=== PATIENT | male | born 1945 | race Caucasian/White ===

== ENCOUNTER 2020-02-06 15:58 | Emergency (ER) | payer MEDICARE ==
[~2020-02-06] VITALS: Ht 175.3 cm; Wt 108.9 kg
--- NOTE | 2020-02-06 16:40 | Diagnostic Imaging Report ---
Examination: CT BRAIN WO CONTRAST History:Slurring words the past 3 days Comparison studies:None Technique: Axial images were obtained from the skull base to the vertex. Coronal and sagittal images reconstructed from the axial data. Dose modulation, iterative reconstruction, and/or weight based adjustment of the mA/kV was utilized to reduce the radiation dose to as low as reasonably achievable. Intravenous contrast: None Findings: Scalp: No abnormalities. Bones: No fractures, blastic or lytic lesions. Brain sulci: Mild volume loss for age. Ventricles: No hydrocephalus. Extra-axial space: No abnormalities. Parenchyma: There are subtle patchy areas of hypoattenuation in the periventricular and subcortical white matter, nonspecific. No masses, hemorrhage, or acute cortical based vascular insults. There is a cortical-based encephalomalacia of the lingual gyrus of the left occipital lobe and superior left cerebellum. Sellar/suprasellar region: No abnormalities. Craniocervical junction: Patent foramen magnum. No Chiari one malformation. Incidental findings: Atherosclerotic calcification of the cavernous and supraclinoid internal carotid arteries. Impression: No acute intracranial abnormalities. Mild chronic microvascular ischemic change and volume loss. 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 Signed by: Dr. Nisa Pringle M.D. on 02/06/2020 4:36 PM
--- NOTE | 2020-02-06 16:45 | Diagnostic Imaging Report ---
TECHNIQUE: Frontal view of the chest. INDICATION: ^FALL R/O CVA COMPARISON: None. IMPRESSION: Limited by technique. Lines and hardware: Surgical clips overlying the left axilla. Heart and mediastinum: Tortuous aorta. Otherwise, unremarkable.. Lungs and pleura: Low lung volumes. Scattered atelectasis. No focal airspace consolidation. No pleural effusion. No pneumothorax. Soft tissues and bones: No acute abnormality. Signed by: Thaddeus Leigh MD on 02/06/2020 4:42 PM
[2020-02-06 16:58] LABS: BASOPHILS % 0.4 % (0.0-1.0); EOSINOPHILS % 0.5 % (0.0-6.0); HEMATOCRIT 37.1 % (38.2-49.6); HEMOGLOBIN 12.6 g/dL (14.0-18.0); LYMPHOCYTES # (AUTO) 0.8 (1.0-3.2); LYMPHOCYTES % 9.7 % (18.0-39.1); MEAN CORPUSCULAR HEMOGLOBIN 31.8 pg (28-32); MEAN CORPUSCULAR VOLUME 93.7 fL (81-99); MONOCYTES # (AUTO) 0.6 (0.2-0.8); MONOCYTES % 7.3 % (4.4-11.3); NEUTROPHILS # (AUTO) 6.7 (2.1-6.9); NEUTROPHILS % 81.7 % (38.7-80.0); PLATELET COUNT 168 x10e3/uL (140-360); RED BLOOD COUNT 3.96 x10e6/uL (4.3-5.7); RED CELL DISTRIBUTION WIDTH 12.8 % (11.7-14.4)
[2020-02-06 17:07] LABS: INR 1.02; PARTIAL THROMBOPLASTIN TIME 38.4 seconds (23.8-35.5)
[2020-02-06 17:16] LABS: ALANINE AMINOTRANSFERASE 15 IU/L (0-55); ALBUMIN 3.9 g/dL (3.5-5.0); ALBUMIN/GLOBULIN RATIO 1.3 (0.8-2.0); ALKALINE PHOSPHATASE 115 IU/L (40-150); BLOOD UREA NITROGEN 30 mg/dL (7-26); BUN/CREATININE RATIO 15 (6-25); CALCIUM 9.1 mg/dL (8.4-10.2); CARBON DIOXIDE 25 mmol/L (22-29); CHLORIDE 104 mmol/L (98-107); CREATINE KINASE 92 IU/L (30-200); CREATININE, SERUM 1.94 mg/dL (0.72-1.25); EST GLOMERULAR FILTRATION RATE 34 ML/MIN (60-); GLUCOSE 116 mg/dL (74-118); SODIUM 139 mmol/L (136-145)
[2020-02-06] MEDS ORDERED: SODIUM CHLORIDE FLUSH 10 ML SYR INJ PRN (18:15)
[2020-02-06] MEDS ORDERED: ONDANSETRON HCL INJ 2MG/ML 2ML 2 MG/ML VIAL IV PRN (18:15)
--- NOTE | 2020-02-06 20:00 | NUR ---
report called to lynn jones at [facility]
== END 2020-02-06 21:33 | disposition short-term general hospital (02) ==
LOC: ER 16:15
DX: R55 Syncope and collapse (principal); W18.30XA Fall on same level, unspecified, initial encounter; Y92.007 Garden or yard of unspecified non-institutional (private) residence as the place of occurrence of the external cause; I10 Essential (primary) hypertension; E11.9 Type 2 diabetes mellitus without complications
CPT/HCPCS: 36415; 70450; 71045; 80053; 82550; 82553; 84484; 85025; 85610; 85730; 93005; 99284